=== PATIENT | male | born 1960 | race Caucasian/White ===

== ENCOUNTER 2018-11-09 06:32 | Day surgery (SDC) | payer BC ==
[~2018-11-09 06:32] MED LIST: Lactated Ringers 1,000 ML IV SCH; ceFAZolin 2 GM in Premix Bag 1 BAG IV SCH
--- NOTE | 2018-11-09 07:05 | PCM.PREANE ---
Preanesthetic Assessment - Anesthesia/Transfusion/Family Hx Anesthesia History: Prior Anesthesia Without Reaction Family History of Anesthesia Reaction: No Transfusion History: No Prior Transfusion(s) - Review of Systems General: No Symptoms Pulmonary: No Symptoms Cardiovascular: No Symptoms Gastrointestinal: No Symptoms Neurological: No Symptoms Other: Reports: None - Physical Assessment NPO Status Date: 11/08/18 Height: 5 ft 11 in Weight: 101.151 kg ASA Class: 1 Mental Status: Alert & Oriented x3 Airway Class: Mallampati = 1 Dentition: Reports: Normal Dentition ROM/Head Extension: Full Lungs: Clear to Auscultation, Normal Respiratory Effort Cardiovascular: Regular Rate, Regular Rhythm - Allergies Allergies/Adverse Reactions: Allergies Allergy/AdvReac Type Severity Reaction Status Date / Time No Known Allergies Allergy Verified 11/03/18 11:15 - Blood Blood Available: No - Anesthesia Plan Pre-Op Medication Ordered: None - Acknowledgements Anesthesia Type Planned: General Anesthesia Pt an Appropriate Candidate for the Planned Anesthesia: Yes Alternatives and Risks of Anesthesia Discussed w Pt/Guardian: Yes Pt/Guardian Understands and Agrees with Anesthesia Plan: Yes PreAnesthesia Questionnaire HEENT History: Reports: Other (See Below) Other HEENT History: wears glasses Cardiovascular History: Reports: Heart Murmur Other Cardiovascular History: "slight heart murmur" Endocrine/Metabolic History: Reports: Obesity/BMI 30+ - Past Surgical History Head Surgeries/Procedures: Reports: None HEENT Surgical History: Reports: Oral Surgery Other HEENT Surgeries/Procedures: wisdom teeth extraction - SUBSTANCE USE Smoking Status *Q: Former Smoker Recreational Drug Use History: No - HOME MEDS Home Medications: Home Meds Ascorbate Calcium [Vitamin C] 500 mg PO DAILY 11/03/18 [History] Cholecalciferol (Vitamin D3) [Vitamin D3] 1,000 units PO DAILY 11/03/18 [History ] Cyanocobalamin (Vitamin B12) [Vitamin B12] 1 tab PO DAILY 11/03/18 [History] Fish Oil/Baldwin-3 Fatty Acids [Fish Oil 1,000 MG] 1,000 mg PO DAILY 11/03/18 [ History] Gluc HCl/Csa/Maribell Hy/Hyalur Ac [Glucosamine Chondroitin] 1 tab PO DAILY [History] Red Yeast Rice 1 tab PO DAILY 11/03/18 [History] - CURRENT (IN HOUSE) MEDS Current Meds: Current Medications Cefazolin Sodium/Dextrose 2 gm (/ Premix) 50 mls @ 100 mls/hr IV ONETIME REJI Lactated Ringer's (Ringers, Lactated) 1,000 mls @ 125 mls/hr IV ASDIRECTED REJI
[2018-11-09] MEDS ORDERED: ceFAZolin 1 GM Vial ONE (07:27)
[2018-11-09] MEDS ORDERED: Bupivacaine 0.5% 30 ML SDV ONE (07:28)
[2018-11-09] MEDS ORDERED: Propofol 200 MG/20 ML SDV ONE (07:30)
[2018-11-09] MEDS ORDERED: fentaNYL 100 MCG/2 ML SDV ONE ×2 (07:30→09:14)
[2018-11-09] MEDS ORDERED: Midazolam 1 MG/ML 2 ML SDV ONE (07:30)
[2018-11-09] MEDS ORDERED: Rocuronium 10 MG/ML 10 ML Syringe ONE (07:31)
[2018-11-09] MEDS ORDERED: Dexamethasone 4 MG/ML 5 ML MDV ONE (07:31)
[2018-11-09] MEDS ORDERED: Ketorolac 30 MG/ML SDV ONE (07:31)
[2018-11-09] MEDS ORDERED: Ondansetron 4 MG/2 ML SDV ONE (07:31)
[2018-11-09] MEDS ORDERED: Succinylcholine 200 MG/10 ML MDV ONE (07:31)
[2018-11-09] MEDS ORDERED: ceFAZolin/Dextrose,Iso-Osmotic 2 GM/50 ML Duplex Bag IV ONE (07:34)
[2018-11-09] MEDS ORDERED: Ondansetron 4 MG/2 ML SDV IVPUSH PRN ×2 (09:03→10:15)
[2018-11-09] MEDS ORDERED: HYDROmorphone 2 MG/ML SDV IVPUSH PRN (09:03)
[2018-11-09] MEDS ORDERED: ePHEDrine 50 MG/ML SDV ONE (09:09)
[2018-11-09] MEDS ORDERED: Phenylephrine/Normal Saline 100 MCG/ML 10 ML Syringe ONE (09:23)
[2018-11-09] MEDS ORDERED: Morphine 10 MG/ML Syringe IVPUSH PRN (10:15)
[2018-11-09] MEDS ORDERED: Lactated Ringers 1,000 ML IV SCH (10:15)
[2018-11-09] MEDS ORDERED: Acetaminophen/HYDROcodone 325-5 MG Tab PO PRN (10:15)
--- NOTE | 2018-11-09 10:19 | PCM.OPNOTE ---
- General Post-Op/Procedure Note Date of Surgery/Procedure: 11/09/18 Operative Procedure(s): Repair indirect right inguinal hernia with medium Bard PerFix plug and patch. Repair direct left inguinal hernia with small Bard PerFix plug and patch Pre Op Diagnosis: Bilateral reducible inguinal hernia Post-Op Diagnosis: Indirect left inguinal hernia. Direct right inguinal hernia. Anesthesia Technique: General LMA (ASA II) Primary Surgeon: Robinson Esquivel Roller Turner: Blaine Garcia Fluid Replacement, Intraop: 1,500 EBL in mLs: 20 Condition: Good Free Text/Narrative:: DICTATION [id number] CPT CODE [id number]
[2018-11-09] MEDS: fentaNYL 100 MCG/2 ML SDV IVPUSH PRN ×4 (10:26→13:05)
--- NOTE | 2018-11-09 10:41 | PCM.POSTAN ---
POST ANESTHESIA ASSESSMENT - MENTAL STATUS Mental Status: Alert, Oriented - RESPIRATORY Respiratory Status: Respiratory Rate WNL, Airway Patent, O2 Saturation Stable - CARDIOVASCULAR CV Status: Pulse Rate WNL, Blood Pressure Stable - GASTROINTESTINAL GI Status: No Symptoms - PAIN Pain Score: 4 - POST OP HYDRATION Hydration Status: Adequate & Stable
[2018-11-09] MEDS ORDERED: oxyCODONE 5 MG Tab PO PRN (11:01)
--- NOTE | 2018-11-09 12:19 | PCM48HPAN ---
Post Anesthesia Note - EVALUATION WITHIN 48HRS OF ANESTHETIC Vital Signs in Normal Range: Yes Patient Participated in Evaluation: Yes Respiratory Function Stable: Yes Airway Patent: Yes Cardiovascular Function Stable: Yes Hydration Status Stable: Yes Pain Control Satisfactory: Yes Nausea and Vomiting Control Satisfactory: Yes Mental Status Recovered: Yes Resp Rate: 16
--- NOTE | 2018-11-09 13:48 | OR ---
SURGEON: Robinson Esquivel M.D. DATE OF PROCEDURE: 11/09/2018 OPERATIONS PERFORMED: 1. Repair of indirect right inguinal hernia with medium Bard PerFix plug and patch. 2. Repair of direct left inguinal hernia with small Bard PerFix plug and patch. BRASSWIND INSTRUMENT REPAIRER: DESHAUN Cast student. ANESTHESIA: General LMA ASA CLASSIFICATION: II. PREOPERATIVE DIAGNOSIS: Bilateral reducible inguinal hernia. POSTOPERATIVE DIAGNOSES: 1. Indirect right inguinal hernia. 2. Direct left inguinal hernia. ESTIMATED BLOOD LOSS: 20 mL. INTRAOPERATIVE FLUID REPLACEMENT: 1500 mL of crystalloid. DESCRIPTION OF PROCEDURE: The patient was taken to the operating room and placed on the operating table in supine position. Time-out was called for appropriate identification of the patient and procedure. Thigh-high TEDs and sequential compression boots were placed. The surgical sites have been marked and numbered prior to the patient entering the operating room. The patient was given 2 g of Ancef prior to induction of anesthesia. The abdomen was prepped with DuraPrep solution. Sterile drapes were applied. Skin incisions were marked out to be symmetrical in both inguinal creases. The right side was approached first, as this was the largest and most symptomatic side. The skin was infiltrated with 0.5% Marcaine solution. The skin incision was made and deepened through the subcutaneous tissue, obtaining hemostasis with the use of electrocautery. Dissection was carried down to the external oblique fascia. This was opened in the direction of its fibers and retracted. The hernia sac was identified and mobilized. This was quite large, but was able to be reduced with minimal difficulty. The cord was then encircled with a Gemran drain. With hernia contents reduced, a medium Bard PerFix plug and patch was brought to the operating table. This was soaked in 1% Ancef solution. The plug was then placed into the internal ring and secured with interrupted 0 Ethibond sutures. The patch was placed over the floor and secured in a medial to lateral fashion. Medially and inferiorly, sutures were placed to Rylan's ligament, transitioning to the inguinal ligament. Superiorly, the sutures were placed to transversalis fascia. The wings of the patch were brought around the cord and again secured laterally with 0 Ethibond. All sutures were tied, with the exception of the lateral stitch. The patient was given a Valsalva maneuver to approximately 30 cm of water. The repair was solid. The lateral stitch was then secured with care taken not to impinge on the cord. The wound was inspected for hemostasis. No significant bleeding was noted. The wound was irrigated with 1% Ancef solution. The cord was returned to its anatomic location. The external oblique was closed with running 3-0 Vicryl. Issac's fascia was closed with running 3-0 Vicryl. The skin edges were reapproximated with subcuticular 4-0 Monocryl. Our attention was now turned to the left side. The skin was again infiltrated with 0.5% Marcaine solution. Again, skin incision was made and deepened through the subcutaneous tissues, obtaining hemostasis with a combination of electrocautery and 3-0 Vicryl real ties. Again, the external oblique was opened in the direction of its fibers and retracted out of harm's way. The cord was mobilized and encircled with a German drain. There was a small defect medially. A small Bard PerFix plug and patch was brought to the operating table. This was again soaked in 1% Ancef solution. The plug was placed into the medial defect and secured with 0 Ethibond sutures. Again, the patch was placed over the floor and secured in a similar fashion medially and inferiorly to Rylan's ligament, transitioning to the inguinal ligament and superiorly to transversalis fascia. The wings were brought around the cord and secured laterally with 0 Ethibond suture. All sutures were tied, with the exception of the lateral stitch. The patient was given a Valsalva maneuver to 35 cm of water. No evidence of residual or recurrent hernia was noted. The lateral stitch was then secured. The wound was inspected for hemostasis, and no bleeding was noted. The incision on the left side was again irrigated with 1% Ancef solution. The cord was returned to its anatomic location. The external oblique was closed with running 3-0 Vicryl. Issac's fascia was reapproximated with 3-0 Vicryl. The skin edges were reapproximated with subcuticular 4-0 Monocryl. Both incisions were Steri-Stripped and dressed with sterile Tegaderm pads. Sponge, needle, and instrument counts were all correct. Following emergence from anesthesia and extubation, the patient was taken to recovery room in stable condition. The scrotum was inspected and testicles noted in both sides. The patient tolerated the procedure well. ANDEWAY / ISIS /[id number]
== END 2018-11-09 15:00 | disposition home or self-care (01) ==
LOC: MW.SDS 06:32
PROVIDERS: ATTEND Surgery
DX: K40.20 Bilateral inguinal hernia, without obstruction or gangrene, not specified as recurrent (principal); E66.9 Obesity, unspecified; Z87.891 Personal history of nicotine dependence; Z79.899 Other long term (current) drug therapy
CPT/HCPCS: 49505; A9270; C1781; J0131; J0690; J1100; J1885; J2250; J2270; J2370; J2405; J2704; J3010; J3490; J7120; J0330